=== PATIENT | male | born 1985 | race Caucasian/White ===

== ENCOUNTER 2022-02-19 21:27 | Emergency (ER) | payer OTHER ==
[2022-02-19] MEDS ORDERED: Lidocaine 1% with EPINEPHrine 1:100,000 50 ML MDV INFILT ONE (21:46)
[2022-02-19] MEDS ORDERED: Bacitracin Oint 1 GM U/D Packet TOP ONE (21:46)
== END 2022-02-19 22:19 | disposition home or self-care (01) ==
LOC: JP.ED 21:27
DX: S01.112A Laceration without foreign body of left eyelid and periocular area, initial encounter (principal); Z79.899 Other long term (current) drug therapy; W22.09XA Striking against other stationary object, initial encounter
CPT/HCPCS: 12013; 99282; 99282-25